=== PATIENT | female | born 1965 | race Caucasian/White ===

== ENCOUNTER 2017-11-05 12:17 | Emergency (ER) | payer OTHER ==
[2017-11-05] MEDS: ONDANSETRON (ODT) 4 MG TAB ODT (13:34)
[2017-11-05] MEDS: ACETAMINOPHEN 325 MG TAB PO (13:34)
== END 2017-11-05 15:30 | disposition home or self-care (01) ==
LOC: E/R 12:17
DX: I10 Essential (primary) hypertension (principal); B34.9 Viral infection, unspecified
CPT/HCPCS: 70450; 99284-25

== ENCOUNTER 2017-11-19 15:27 | Emergency (ER) | payer OTHER ==
[2017-11-19 16:39] LABS: URINE BLOOD (Dip) POC 2+ (NEGATIVE); URINE GLUCOSE (Dip) POC Negative (NEGATIVE); URINE KETONES (Dip) POC Trace (NEGATIVE); URINE LEUKOCYTE EST (Dip) POC Negative (NEGATIVE); URINE NITRITE (Dip) POC Negative (NEGATIVE); URINE TOTAL PROTEIN POC Negative (NEGATIVE)
[2017-11-19] MEDS: KETOROLAC 30 MG INJ IM (16:43)
== END 2017-11-19 17:28 | disposition home or self-care (01) ==
LOC: FTE 15:27
DX: M54.5 Low back pain (principal); I10 Essential (primary) hypertension
CPT/HCPCS: 81003; 96372; 99284-25